=== PATIENT | male | born 1990 | race Asian ===

== ENCOUNTER 2018-09-19 10:11 | Day surgery (SDC) | payer OTHER ==
[~2018-09-19 10:11] MED LIST: Buffered Lidocaine 1% SYRIN* 1 ML/SYRINGE INTRADERM ONE; Dexamethasone IV* 4 MG/ML 1 ML (4 MG) IV SLOW PU ONE; Famotidine IV* 10 MG/ML 2 ML (20 mg) IV ONE; Lactated Ringers 1000 ML Bag* 1,000 ML IV SCH
[2018-09-19] MEDS ORDERED: Famotidine IV* 10 MG/ML 2 ML (20 mg) ONE (10:45)
[2018-09-19] MEDS ORDERED: Dexamethasone IV* 4 MG/ML 1 ML (4 MG) ONE (10:45)
[2018-09-19] MEDS ORDERED: ceFAZolin 2 GM PREMIX in ORs 2 GM/50 ML BAG IVPB ONE (10:45)
[2018-09-19] MEDS ORDERED: Buffered Lidocaine 1% SYRIN* 1 ML/SYRINGE INTRADERM ONE (10:45)
[2018-09-19] MEDS ORDERED: Propofol* 10 MG/ML 20 ML BTL ONE (12:05)
[2018-09-19] MEDS ORDERED: Ondansetron INJ* 2 MG/ML VIAL ONE (12:05)
[2018-09-19] MEDS ORDERED: Midazolam* 1 MG/ML 5 ML VIAL (5 MG) ONE (12:05)
[2018-09-19] MEDS ORDERED: Atracurium* 10 MG/ML 10 ML VIAL ONE (12:05)
[2018-09-19] MEDS ORDERED: fentaNYL* 50 MCG/ML 2 ML VIAL (100 MCG VIAL) ONE (12:05)
[2018-09-19] MEDS ORDERED: ROPIVACAINE 5 MG/ML 30 ML BTL (0.5%) ONE (12:22)
[2018-09-19] MEDS ORDERED: Glycopyrrolate IV* 0.2 MG/ML 1 ML VIAL ONE (13:13)
[2018-09-19 18:37] VITALS: BP 123/62
--- NOTE | 2018-09-19 23:12 | OP ---
CC: PCP * DATE OF OPERATION: 09/19/18 - [facility] DATE OF : 86 SURGEON: Hanh Swan MD. SOLAR PROCESS ENGINEER: ATUL Carrasquillo. An assistant professor of psychology was needed for the entirety of the case to help with positioning, retraction, and anchor placement and was utilized throughout all portions of the case. ANESTHESIOLOGIST: Dr. Ham. ANESTHESIA: General interscalene block. PRE-OP DIAGNOSIS: Recurrent instability and stiffness POST-OP DIAGNOSIS: Recurrent instability and stiffness OPERATIVE PROCEDURES: Right shoulder arthroscopy with: 1. Manipulation under anesthesia. 2. Glenohumeral debridement including chondroplasty. 3. Anterior labral repair . IMPLANTS USED: Three Bioraptors. COMPLICATIONS: None. ESTIMATED BLOOD LOSS: Minimal. INDICATIONS: Yovanny Pulliam is a 28-year-old male who has had multiple dislocations of his right shoulder. His most recent one happened approximately 6 weeks ago. He has had recurrent instability. He has failed conservative management and has persistent instability. Risks and benefits of surgery were discussed at length and included arthritis, recurrent tear, instability and stiffness. DESCRIPTION OF PROCEDURE: The patient was greeted in the preoperative area by the attending surgeon. Correct extremity was marked and consent was confirmed. The patient underwent interscalene nerve block by the anesthesiologist, after which he was brought back to the operating suite where he was placed in supine position on the operating table. He then underwent general anesthesia with endotracheal intubation, after which he was placed in the left lateral decubitus position with an axillary roll. All bony prominences were padded. He was secured with a pegboard. The right arm was draped unsterile with 10 pounds of traction. The right shoulder was then prepped and draped in the usual sterile fashion beginning with chlorhexidine soap, scrub, and alcohol wipe and a final prep with ChloraPrep. The patient has a limitation with his range of motion prior to surgery and was able to forward flex to 150. Therefore a manipulation under anesthesia was done and I was able to forward flex him to 175 degrees and abduct him to 175 degrees, externally rotate to 80 degrees. After appropriate surgical pause, the standard posterolateral portal was made sharply with an 11-blade. The scope was introduced into the joint and the joint was examined. There were some areas of chondrosis. There was a large area of Hill- Sachs lesion, but not a lot of depth. It was a non-engaging lesion. There was an obvious large anterior labral tear. There also some of the capsule that was torn too. The labrum was obviously displaced anteriorly and medially and the capsule was very friable. The head was obviously subluxed anteriorly. The superior labrum was intact. The posterior labrum had some mild fraying, but otherwise no obvious tearing. Inferior recess was intact down the surface of the supraspinatus and subscapularis and infraspinatus were intact. A low anterior portal was made and an 8-mm cannula was placed. A second cannula was placed in the superior aspect of the interval with a 5-mm cannula for suture shuttling. At this point, the labrum was visualized. The scope was changed to a 70 degree scope. There was positive drive through sign. A lateral darrel was used to help distract the shoulder and exposed the inferior portions. There was tearing obviously from the 6 o'clock to the 2 o' clock face. The capsule and the labrum, which were scarred were then gently elevated using an elevator. The bony portion was then rasped using a double- sided as well as a red ball rasp until there was good bony bleeding bed in the glenoid portion. The capsule was also rasped. There were obviously tears in the capsule anyway and evidence of previous tearing and scaring. The tissue quality was okay, but not great. At this point, anchor placement began very inferiorly near the 6 o'clock position. At the 5:30 - 6 o'clock position, an anchor was placed, Q-Fix anchor, but it did hold in the bone. So, a second anchor was placed around the 5:30 position, which is a Bioraptor, which was placed with excellent purchase. The sutures were then passed in a horizontal mattress configuration and then tied down. This helped to allow for an inferior- superior shift and restore the inferior aspect of the labrum. Care was taken to try to get as much capsule that was normal as well as the labral remnant. A second anchor was placed at around the 4:30 position. Also sutures passed also in a horizontal mattress configuration. This helped to tie down and help to again restore the labrum. Tension was taken off the lateral darrel. The head was found to fit more centrally. A third anchor was placed at around the 3:30 to 3 o'clock position, a Bioraptor was placed. The suture was then passed in a simple fashion to help to tie down and secure the labrum. This was appropriately secured. The lateral darrel was removed. The head was found to have fit more centrally. There was no more further anterior subluxation. There was no evidence of the Sunset-Sachs lesion. Final images were obtained. All loose fluid and debris were removed. The wounds were copiously irrigated with sterile saline. Portals were closed 3-0 nylon in an interrupted fashion. Sterile dressings were applied. A Cryo/Cuff was applied and an UltraSling. He was awoken from anesthesia and transferred to the PACU in stable condition. POSTOPERATIVE PLAN: He will be nonweightbearing. He will be in a sling for approximately 4 weeks. He will start therapy next week to work on his gentle range of motion due to his age and stiffness. He will be discharged on pain medication. DVT prophylaxis was considered, but deferred due to no previous personal or family history. I will see the patient back in 10 to 14 days. [id number]/[facility] #: [id number] [facility]
== END 2018-09-19 18:38 | disposition home or self-care (01) ==
LOC: OR 10:11
PROVIDERS: ATTEND Orthopaedic Surgery
DX: M24.411 Recurrent dislocation, right shoulder (principal); M25.611 Stiffness of right shoulder, not elsewhere classified; G89.18 Other acute postprocedural pain
CPT/HCPCS: J0690; J1100; J2250; J2405; J2704; J2795; J3010